=== PATIENT | female | born 1960 | race Caucasian/White ===

== ENCOUNTER 2018-05-19 18:18 | Emergency (ER) | payer SELFPAY ==
[~2018-05-19] VITALS: Ht 172.7 cm; Wt 59.1 kg
[2018-05-19 18:52] VITALS: BP 128/71; PULSE 96; RESP 18; Ht 172.7 cm; Wt 59.1 kg
== END 2018-05-19 21:55 | disposition left against medical advice (07) ==
LOC: E/R 18:18
DX: Z53.21 Procedure and treatment not carried out due to patient leaving prior to being seen by health care provider (principal)